=== PATIENT | male | born 1945 | race Two or more races ===

== ENCOUNTER 2022-07-28 11:13 | Outpatient (CLI) | payer MEDICARE ==
[2022-08-05] MEDS ORDERED: ASPI-1100 PO (09:16)
== END 2022-07-28 23:59 | disposition home or self-care (01) ==
LOC: LAB 11:13
PROVIDERS: ATTEND Specialist
DX: Z01.812 Encounter for preprocedural laboratory examination (principal); Z20.822 Contact with and (suspected) exposure to COVID-19
CPT/HCPCS: U0003; C9803

== ENCOUNTER 2022-08-02 05:26 | Inpatient (IN) | payer MEDICARE, OTHER ==
[~2022-08-02] VITALS: Ht 160 cm; Wt 60.3 kg
[~2022-08-02 05:26] MED LIST: ANESTHESIA TRAY IN PYXIS 1 EA TRAY MC ONE
[2022-08-02] MEDS ORDERED: BUPIVACAINE 0.5 % PF 150 MG/30 ML VIAL ONE (06:21)
[2022-08-02] MEDS ORDERED: POLYMYXIN B SULFATE 500,000 UNITS ONE (06:21)
[2022-08-02 06:25] VITALS: BP 128/75
[2022-08-02] MEDS ORDERED: FENTANYL PF 250MCG/5ML AMPUL ONE (06:36)
[2022-08-02] MEDS ORDERED: MIDAZOLAM HCL 2 MG/2ML VIAL ONE (06:36)
[2022-08-02] MEDS ORDERED: FAMOTIDINE/PF INJ 20 MG/2 ML VIAL IV ONE (06:37)
[2022-08-02] MEDS ORDERED: ROCURONIUM BROMIDE 50 MG/5 ML ONE (06:37)
[2022-08-02] MEDS ORDERED: TRANEXAMIC ACID 3,000 MG in SODIUM CHLORIDE IRRIG SOLUTION 70 ML IR ONE (07:00)
[2022-08-02] MEDS ORDERED: ONDANSETRON HCL/PF 4 MG/2 ML VIAL ONE (09:14)
[2022-08-02] MEDS ORDERED: MEPERIDINE25 MG SYR 25 MG/ML VIAL ONE (09:20)
[2022-08-02 10:00] VITALS: BP 113/62
[2022-08-02] MEDS ORDERED: DOCUSATE SODIUM 100 MG CAPSULE PO PRN (12:30)
[2022-08-02] MEDS ORDERED: ZOLPIDEM TARTRATE 5 MG TABLET PO PRN (12:30)
[2022-08-02] MEDS ORDERED: HYDROMORPHONE 1 MG/1 ML DISP.SYRIN IV PRN (12:30)
[2022-08-02] MEDS ORDERED: ONDANSETRON HCL/PF 4 MG/2 ML VIAL IVP PRN (12:30)
[2022-08-02] MEDS ORDERED: BISACODYL SUPP (10 MG) 10 MG/SUPP.RECT SUPP.RECT RC PRN (12:30)
[2022-08-02] MEDS ORDERED: SENNOSIDES 8.6 MG TABLET PO PRN (12:30)
[2022-08-02] MEDS ORDERED: HYDROCODONE/APAP 5/325MG TABLET PO PRN (12:30)
[2022-08-02] MEDS ORDERED: ACETAMINOPHEN 325 MG TABLET PO PRN (12:30)
[2022-08-02] MEDS: IV LR 1000 ML 1,000 ML IV PRN ×2 (13:37→20:19)
[2022-08-02] MEDS ORDERED: PARO20TA7 PO (15:06)
[2022-08-02] MEDS ORDERED: POTA5TAB2 PO (15:06)
[2022-08-02] MEDS ORDERED: ONDA4TAB5 PO (15:06)
[2022-08-02] MEDS ORDERED: BIMA2.5D5 EACHEYE (15:06)
[2022-08-02] MEDS ORDERED: MIRT-91 PO (15:06)
[2022-08-02] MEDS ORDERED: CHOL100043 PO (15:06)
[2022-08-02] MEDS ORDERED: TIMO5DRO18 EACHEYE (15:06)
[2022-08-02] MEDS ORDERED: BACL10TA PO (15:06)
[2022-08-02] MEDS ORDERED: ICOS1CAP PO (15:06)
[2022-08-02] MEDS ORDERED: LIPA1CAP15 PO (15:06)
[2022-08-02] MEDS ORDERED: FAMO40TA7 PO (15:06)
[2022-08-02] MEDS ORDERED: ROSU40TA23 PO (15:06)
[2022-08-02] MEDS ORDERED: LINA145C PO (15:06)
[2022-08-02] MEDS ORDERED: GABA300C PO (15:06)
[2022-08-02] MEDS ORDERED: MYRBETRIQ PO (15:06)
[2022-08-02] MEDS ORDERED: METO25TA4 PO (15:06)
[2022-08-02] MEDS ORDERED: ESOM40CA52 PO (15:06)
[2022-08-02] MEDS ORDERED: PREG-59 PO (15:06)
[2022-08-02] MEDS ORDERED: NITR0.4T48 SL (15:06)
[2022-08-02] MEDS ORDERED: ASPI-1420 PO (15:06)
[2022-08-02] MEDS ORDERED: OLME1TAB92 PO (15:06)
[2022-08-02] MEDS ORDERED: NAPR-1009 PO (15:06)
[2022-08-02] MEDS ORDERED: SENN8.8S19 PO (15:06)
[2022-08-02] MEDS ORDERED: LUBI24CA5 PO (15:06)
[2022-08-02] MEDS ORDERED: EZET10TA32 PO (15:06)
[2022-08-02] MEDS ORDERED: HYDR-3972 PO (15:06)
[2022-08-02] MEDS: ANCEF 1 GM/50 ML D5W IV SCH ×4 (15:07→22:14)
[2022-08-02] MEDS ORDERED: HYDROMORPHONE 1 MG/1 ML DISP.SYRIN IM/IV/SC PRN (15:30)
[2022-08-02] MEDS ORDERED: MAG HYDROX/AL HYDROX/SIMETH 30 ML UDC PO PRN (15:30)
[2022-08-02] MEDS ORDERED: diphenhydrAMINE HCL 25 MG CAPSULE PO PRN (15:30)
[2022-08-02] MEDS: DOCUSATE SODIUM 100 MG CAPSULE PO SCH ×2 (15:30→17:44)
[2022-08-02] MEDS ORDERED: MENTHOL/CETYLPYRD (CEPACOL) 1 LOZ LOZENGE PO PRN (15:30)
[2022-08-02 16:00] VITALS: BP 69/47
[2022-08-02 16:33] VITALS: BP 89/58
[2022-08-02] MEDS: NICOTINE PATCH (21MG) 21 MG PATCH.TD24 TD SCH (17:22)
[2022-08-02] MEDS: PREGABALIN 25 MG CAPSULE PO SCH (17:44)
[2022-08-02 20:00] VITALS: BP 99/59
[2022-08-02] MEDS: MIRTAZAPINE 15 MG TABLET PO SCH (21:09)
[2022-08-02] MEDS: FAMOTIDINE (20 MG) 20 MG TABLET PO SCH (21:09)
[2022-08-02] MEDS: PANTOPRAZOLE 40 MG TABLET.DR PO SCH (21:09)
[2022-08-03] MEDS: HYDROCODONE/APAP 5/325MG TABLET PO PRN (06:43)
[2022-08-03 07:30] LABS: HEMOGLOBIN 12.1 g/dL (13.5-17.5)
[2022-08-03 08:00] VITALS: BP 90/50
[2022-08-03] MEDS: IV LR 1000 ML 1,000 ML IV PRN ×2 (08:50→17:36)
[2022-08-03] MEDS ORDERED: FAMOTIDINE (20 MG) 20 MG TABLET PO PRN (10:00)
[2022-08-03] MEDS ORDERED: GABAPENTIN 300 MG CAPSULE PO PRN (10:00)
[2022-08-03] MEDS: PREGABALIN 25 MG CAPSULE PO SCH ×2 (10:11→17:15)
[2022-08-03] MEDS: FAMOTIDINE (20 MG) 20 MG TABLET PO SCH ×2 (10:11→21:29)
[2022-08-03] MEDS: NICOTINE PATCH (21MG) 21 MG PATCH.TD24 TD SCH (10:12)
[2022-08-03] MEDS: DOCUSATE SODIUM 100 MG CAPSULE PO SCH ×2 (10:12→17:15)
[2022-08-03] MEDS: POTASSIUM CITRATE 5 MEQ TABLET.SA PO SCH ×2 (12:20→17:13)
[2022-08-03 16:00] VITALS: BP 90/56
[2022-08-03 16:01] LABS: CALCIUM, SERUM 7.5 mg/dL (8.5-10.1); CREATININE 1.3 mg/dL (0.6-1.3); POTASSIUM 3.8 mmol/L (3.5-5.1)
[2022-08-03] MEDS ORDERED: Medication Not On Formulary EA (Icosapent Ethyl (Vascepa) 2 GM) PO SCH (17:00)
[2022-08-03] MEDS: LIPASE/PROTEASE/AMYLASE 1 EACH CAPSULE.DR PO SCH (17:14)
[2022-08-03] MEDS: IV NS 0.9% 1,000 ML IV PRN (18:09)
[2022-08-03] MEDS: ASPIRIN EC 325 MG TABLET.DR PO SCH (18:19)
[2022-08-03 20:00] VITALS: BP 93/56
[2022-08-03 20:19] VITALS: BP 96/54
[2022-08-03] MEDS: BACLOFEN (10 MG) 10 MG TABLET PO SCH (21:29)
[2022-08-03] MEDS: MIRTAZAPINE 15 MG TABLET PO SCH (21:29)
[2022-08-03] MEDS: PANTOPRAZOLE 40 MG TABLET.DR PO SCH (21:29)
[2022-08-04] MEDS ORDERED: Medication Not On Formulary EA (Esomeprazole Magnesium 40 MG) PO SCH (07:30)
[2022-08-04 08:00] VITALS: BP 149/83
[2022-08-04 08:38] LABS: CALCIUM, SERUM 7.4 mg/dL (8.5-10.1); CREATININE 1.1 mg/dL (0.6-1.3); POTASSIUM 3.8 mmol/L (3.5-5.1)
[2022-08-04] MEDS ORDERED: Medication Not On Formulary EA (Linaclotide (Linzess) 145 MCG) PO SCH (09:00)
[2022-08-04] MEDS ORDERED: ASPIRIN EC 325 MG TABLET.DR PO SCH (09:00)
[2022-08-04] MEDS: ASPIRIN EC 325 MG TABLET.DR PO SCH (09:03)
[2022-08-04] MEDS: FAMOTIDINE (20 MG) 20 MG TABLET PO SCH ×2 (09:03→22:31)
[2022-08-04] MEDS: DOCUSATE SODIUM 100 MG CAPSULE PO SCH ×2 (09:03→16:15)
[2022-08-04] MEDS: LIPASE/PROTEASE/AMYLASE 1 EACH CAPSULE.DR PO SCH ×3 (09:03→16:15)
[2022-08-04] MEDS: PAROXETINE HCL 20 MG TABLET PO SCH (09:03)
[2022-08-04] MEDS: EZETIMIBE 10 MG TABLET PO SCH (09:03)
[2022-08-04] MEDS: PREGABALIN 25 MG CAPSULE PO SCH ×2 (09:03→16:16)
[2022-08-04] MEDS: METOPROLOL SUCCINATE 25 MG TAB.SR.24H PO SCH (09:04)
[2022-08-04] MEDS: NICOTINE PATCH (21MG) 21 MG PATCH.TD24 TD SCH (09:04)
[2022-08-04] MEDS: POTASSIUM CITRATE 5 MEQ TABLET.SA PO SCH ×3 (09:22→16:17)
[2022-08-04 10:11] LABS: BASOPHILS % (AUTO) 0.2 % (0.0-2.0); EOSINOPHILS % (AUTO) 0.6 % (0.0-6.0); HEMATOCRIT 35 % (39-51); HEMOGLOBIN 11.4 g/dL (13.5-17.5); LYMPHOCYTES # (AUTO) 7.5 K/uL (0.8-4.8); LYMPHOCYTES % (AUTO) 35.8 % (20.0-44.0); MEAN CORPUSCULAR HGB CONC 33 g/dl (31.0-36.0); MEAN CORPUSCULAR VOLUME 94 fL (80-96); MONOCYTES # (AUTO) 0.6 K/uL (0.1-1.30); MONOCYTES % (AUTO) 2.9 % (2.0-12.0); NEUTROPHILS # (AUTO) 12.8 K/uL (1.8-8.9); NEUTROPHILS % (AUTO) 60.5 % (43.0-81.0); PLATELET COUNT (AUTO) 80 K/uL (150-450); RED BLOOD CELL COUNT(AUTO) 3.68 MIL/uL (4.5-6.0); WHITE BLOOD COUNT (AUTO) 21.1 K/uL (4.3-11.0)
[2022-08-04 15:36] VITALS: BP 100/62
[2022-08-04] MEDS: IV NS 0.9% 1,000 ML IV PRN (17:40)
[2022-08-04 20:00] VITALS: BP 134/90
[2022-08-04] MEDS: MIRTAZAPINE 15 MG TABLET PO SCH (22:31)
[2022-08-04] MEDS: PANTOPRAZOLE 40 MG TABLET.DR PO SCH (22:31)
[2022-08-04] MEDS: BACLOFEN (10 MG) 10 MG TABLET PO SCH (22:31)
[2022-08-05] MEDS: IV NS 0.9% 1,000 ML IV PRN ×2 (05:08→19:28)
[2022-08-05 05:59] LABS: BAND % (MANUAL) 10 % (0.0-5.0); BASOPHILS % (MANUAL) 0 % (0.0-2.0); EOSINOPHILS % (MANUAL) 0 % (0-4); LYMPHOCYTES % (MANUAL) 24 % (16-48); MONOCYTES % (MANUAL) 10 % (0-11.0); NEUTROPHILS % (MANUAL) 56 (42-76)
[2022-08-05 08:00] VITALS: BP 145/81
[2022-08-05] MEDS: NICOTINE PATCH (21MG) 21 MG PATCH.TD24 TD SCH (09:03)
[2022-08-05] MEDS: PREGABALIN 25 MG CAPSULE PO SCH ×2 (09:04→16:48)
[2022-08-05] MEDS: EZETIMIBE 10 MG TABLET PO SCH (09:04)
[2022-08-05] MEDS: PAROXETINE HCL 20 MG TABLET PO SCH (09:04)
[2022-08-05] MEDS: POTASSIUM CITRATE 5 MEQ TABLET.SA PO SCH ×3 (09:04→16:52)
[2022-08-05] MEDS: DOCUSATE SODIUM 100 MG CAPSULE PO SCH ×2 (09:04→16:48)
[2022-08-05] MEDS: FAMOTIDINE (20 MG) 20 MG TABLET PO SCH ×2 (09:04→22:48)
[2022-08-05] MEDS: ASPIRIN EC 325 MG TABLET.DR PO SCH (09:04)
[2022-08-05] MEDS: LIPASE/PROTEASE/AMYLASE 1 EACH CAPSULE.DR PO SCH ×3 (09:05→16:48)
[2022-08-05] MEDS: METOPROLOL SUCCINATE 25 MG TAB.SR.24H PO SCH (09:05)
[2022-08-05] MEDS ORDERED: ASPI-1100 PO (09:16)
[2022-08-05 11:16] LABS: BASOPHILS % (AUTO) 0.2 % (0.0-2.0); EOSINOPHILS % (AUTO) 0.1 % (0.0-6.0); HEMATOCRIT 34 % (39-51); LYMPHOCYTES # (AUTO) 8.5 K/uL (0.8-4.8); LYMPHOCYTES % (AUTO) 43.2 % (20.0-44.0); MEAN CORPUSCULAR HGB CONC 32 g/dl (31.0-36.0); MEAN CORPUSCULAR VOLUME 98 fL (80-96); MONOCYTES # (AUTO) 0.6 K/uL (0.1-1.30); NEUTROPHILS # (AUTO) 10.6 K/uL (1.8-8.9); NEUTROPHILS % (AUTO) 53.5 % (43.0-81.0); PLATELET COUNT (AUTO) 66 K/uL (150-450); RED BLOOD CELL COUNT(AUTO) 3.52 MIL/uL (4.5-6.0); WHITE BLOOD COUNT (AUTO) 19.7 K/uL (4.3-11.0)
[2022-08-05 11:38] LABS: CALCIUM, SERUM 7.6 mg/dL (8.5-10.1); CREATININE 0.8 mg/dL (0.6-1.3); POTASSIUM 3.7 mmol/L (3.5-5.1)
[2022-08-05 16:00] VITALS: BP 126/73
[2022-08-05] MEDS: BACLOFEN (10 MG) 10 MG TABLET PO SCH (22:48)
[2022-08-05] MEDS: PANTOPRAZOLE 40 MG TABLET.DR PO SCH (22:48)
[2022-08-05] MEDS: MIRTAZAPINE 15 MG TABLET PO SCH (22:48)
[2022-08-06] MEDS: IV NS 0.9% 1,000 ML IV PRN (06:39)
[2022-08-06] MEDS: EZETIMIBE 10 MG TABLET PO SCH (08:14)
[2022-08-06] MEDS: PREGABALIN 25 MG CAPSULE PO SCH ×2 (08:14→17:09)
[2022-08-06] MEDS: FAMOTIDINE (20 MG) 20 MG TABLET PO SCH ×2 (08:14→22:08)
[2022-08-06] MEDS: LIPASE/PROTEASE/AMYLASE 1 EACH CAPSULE.DR PO SCH ×3 (08:14→17:09)
[2022-08-06] MEDS: PAROXETINE HCL 20 MG TABLET PO SCH (08:15)
[2022-08-06] MEDS: NICOTINE PATCH (21MG) 21 MG PATCH.TD24 TD SCH (08:15)
[2022-08-06] MEDS: DOCUSATE SODIUM 100 MG CAPSULE PO SCH ×2 (08:15→16:57)
[2022-08-06] MEDS: POTASSIUM CITRATE 5 MEQ TABLET.SA PO SCH ×3 (08:16→17:09)
[2022-08-06] MEDS: METOPROLOL SUCCINATE 25 MG TAB.SR.24H PO SCH (08:18)
[2022-08-06] MEDS: ASPIRIN EC 325 MG TABLET.DR PO SCH (08:38)
[2022-08-06 09:26] LABS: BASOPHILS % (AUTO) 0.1 % (0.0-2.0); HEMATOCRIT 33 % (39-51); HEMOGLOBIN 10.8 g/dL (13.5-17.5); LYMPHOCYTES % (AUTO) 57.9 % (20.0-44.0); MEAN CORPUSCULAR HGB CONC 33 g/dl (31.0-36.0); MEAN CORPUSCULAR VOLUME 95 fL (80-96); MONOCYTES # (AUTO) 0.5 K/uL (0.1-1.30); MONOCYTES % (AUTO) 4.1 % (2.0-12.0); NEUTROPHILS # (AUTO) 4.6 K/uL (1.8-8.9); NEUTROPHILS % (AUTO) 37.9 % (43.0-81.0); PLATELET COUNT (AUTO) 74 K/uL (150-450)
[2022-08-06 09:33] LABS: CALCIUM, SERUM 7.6 mg/dL (8.5-10.1); CREATININE 0.7 mg/dL (0.6-1.3)
[2022-08-06] MEDS: HYDROCODONE/APAP 5/325MG TABLET PO PRN (12:23)
[2022-08-06] MEDS ORDERED: POTASSIUM CHLORIDE 20 MEQ TAB.PRT.SR PO ONE (12:30)
[2022-08-06 20:00] VITALS: BP 124/69
[2022-08-06 20:32] VITALS: BP 124/69
[2022-08-06] MEDS: MIRTAZAPINE 15 MG TABLET PO SCH (22:08)
[2022-08-06] MEDS: PANTOPRAZOLE 40 MG TABLET.DR PO SCH (22:08)
[2022-08-06] MEDS: BACLOFEN (10 MG) 10 MG TABLET PO SCH (22:09)
[2022-08-06 22:48] LABS: BAND % (MANUAL) 1 % (0.0-5.0); LYMPHOCYTES % (MANUAL) 20 % (16-48); MONOCYTES % (MANUAL) 5 % (0-11.0); NEUTROPHILS % (MANUAL) 74 (42-76)
[2022-08-07] MEDS: IV NS 0.9% 1,000 ML IV PRN (04:29)
[2022-08-07 07:11] LABS: BASOPHILS % (AUTO) 0.1 % (0.0-2.0); EOSINOPHILS % (AUTO) 0.3 % (0.0-6.0); HEMATOCRIT 34 % (39-51); HEMOGLOBIN 11.1 g/dL (13.5-17.5); LYMPHOCYTES # (AUTO) 6.6 K/uL (0.8-4.8); LYMPHOCYTES % (AUTO) 72.4 % (20.0-44.0); MEAN CORPUSCULAR HGB CONC 33 g/dl (31.0-36.0); MEAN CORPUSCULAR VOLUME 95 fL (80-96); MONOCYTES # (AUTO) 0.5 K/uL (0.1-1.30); MONOCYTES % (AUTO) 5.5 % (2.0-12.0); NEUTROPHILS % (AUTO) 21.7 % (43.0-81.0); PLATELET COUNT (AUTO) 85 K/uL (150-450); RED BLOOD CELL COUNT(AUTO) 3.56 MIL/uL (4.5-6.0); WHITE BLOOD COUNT (AUTO) 9.1 K/uL (4.3-11.0)
[2022-08-07 07:28] LABS: CALCIUM, SERUM 7.3 mg/dL (8.5-10.1); CREATININE 0.8 mg/dL (0.6-1.3); POTASSIUM 3.2 mmol/L (3.5-5.1)
[2022-08-07 08:00] VITALS: BP 151/89
[2022-08-07] MEDS: ASPIRIN EC 325 MG TABLET.DR PO SCH (08:44)
[2022-08-07] MEDS: FAMOTIDINE (20 MG) 20 MG TABLET PO SCH (08:44)
[2022-08-07] MEDS: EZETIMIBE 10 MG TABLET PO SCH (08:44)
[2022-08-07] MEDS: PAROXETINE HCL 20 MG TABLET PO SCH (08:44)
[2022-08-07] MEDS: LIPASE/PROTEASE/AMYLASE 1 EACH CAPSULE.DR PO SCH ×3 (08:44→16:26)
[2022-08-07] MEDS: NICOTINE PATCH (21MG) 21 MG PATCH.TD24 TD SCH ×2 (08:44→09:00)
[2022-08-07] MEDS: METOPROLOL SUCCINATE 25 MG TAB.SR.24H PO SCH (08:44)
[2022-08-07] MEDS: PREGABALIN 25 MG CAPSULE PO SCH ×2 (08:45→16:26)
[2022-08-07] MEDS ORDERED: POTASSIUM CHLORIDE 20 MEQ TAB.PRT.SR PO ONE (09:00)
[2022-08-07] MEDS: DOCUSATE SODIUM 100 MG CAPSULE PO SCH (09:00)
[2022-08-07] MEDS: POTASSIUM CITRATE 5 MEQ TABLET.SA PO SCH ×3 (11:23→16:26)
[2022-08-07 16:00] VITALS: BP 156/80
[2022-08-07 19:13] LABS: BAND % (MANUAL) 9 % (0.0-5.0); EOSINOPHILS % (MANUAL) 1 % (0-4); LYMPHOCYTES % (MANUAL) 32 % (16-48); MONOCYTES % (MANUAL) 7 % (0-11.0); NEUTROPHILS % (MANUAL) 51 (42-76)
== END 2022-08-07 20:10 | DRG 470 ==
LOC: DS 05:26 → MED 05:27
PROVIDERS: ADMIT Internal Medicine; ATTEND Internal Medicine
PROC: 0SRB0JZ Replacement of Left Hip Joint with Synthetic Substitute, Open Approach (ICD-10-PCS; principal; 2022-08-02)
DX: M16.12 Unilateral primary osteoarthritis, left hip (principal); Z20.822 Contact with and (suspected) exposure to COVID-19; I25.119 Atherosclerotic heart disease of native coronary artery with unspecified angina pectoris; J44.9 Chronic obstructive pulmonary disease, unspecified; N40.0 Benign prostatic hyperplasia without lower urinary tract symptoms; F17.210 Nicotine dependence, cigarettes, uncomplicated; I10 Essential (primary) hypertension; Z79.82 Long term (current) use of aspirin; Z79.899 Other long term (current) drug therapy; G31.84 Mild cognitive impairment of uncertain or unknown etiology; F32.9 Major depressive disorder, single episode, unspecified; N20.0 Calculus of kidney; Z87.39 Personal history of other diseases of the musculoskeletal system and connective tissue; E78.5 Hyperlipidemia, unspecified; K21.9 Gastro-esophageal reflux disease without esophagitis; D72.829 Elevated white blood cell count, unspecified
CPT/HCPCS: 36415; 80048-TC; 82962-TC; 85025-TC; 85027-TC; 86850-TC; 87081-TC; 88305-TC; 88311-TC; 97110-TC; 97112-TC; 97116-TC; 97530-TC; A4217; A6209; A6253; A6402; C1776; G0378; J0690; J1170; J2175; J2250; J2405; J2704; J2765; J3010; J3490; J7030; J7060; J7120